=== PATIENT | male | born 2000 | race Caucasian/White ===

== ENCOUNTER 2024-11-11 18:32 | Emergency (ER) | payer OTHER, SELFPAY ==
[2024-11-11 18:43] VITALS: PULSE 106
[2024-11-11 18:44] VITALS: BP 135/75; PULSE 73; O2SAT 100
[2024-11-11 18:47] VITALS: BP 135/75; PULSE 66; RESP 16; TEMP 36.8; O2SAT 98
[2024-11-11 19:00] VITALS: BP 120/66; PULSE 68; O2SAT 100
[2024-11-11] MEDS: ONDANSETRON 4 MG ODT SL (19:06)
[2024-11-11] MEDS: IBUPROFEN 400 MG TABLET PO (19:06)
[2024-11-11] MEDS: ACETAMINOPHEN 325 MG TABLET PO (19:06)
[2024-11-11 19:30] VITALS: BP 124/68; PULSE 65; O2SAT 100
--- NOTE | 2024-11-11 19:47 | ED.HA ---
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 He has never had headaches, has never actually been sick has not taken ibuprofen or Tylenol and does not have any at home concerned that the headache was so severe he did not feel safe driving. It was associated with nausea, he did have a single episode of emesis that did not improve the head pain. He has no history or family history of migraine no trauma. Not currently complaining of fevers or myalgias but wondering if his throat is beginning to get slightly scratchy. Related Data Allergies Allergy/AdvReac Type Severity Reaction Status Date / Time No Known Drug Allergies Allergy Verified 11/11/24 18:52 Review of Systems Review of Systems Narrative: Pertinent positive and negative findings as per HPI Exam Initial Vital Signs Initial Vital Signs: Vital Signs Temperature 98.3 F 11/11/24 18:47 Pulse Rate 66 11/11/24 18:47 Respiratory Rate 16 11/11/24 18:47 Blood Pressure 135/75 11/11/24 18:47 Pulse Oximetry 98 11/11/24 18:47 Oxygen Delivery Method Room Air 11/11/24 18:47 General: Healthy appearing, in no acute distress. Able to give a complete and coherent history. Well-nourished well-developed HEENT: Moist mucous membranes, normal sclera with reactive pupils, no nuchal rigidity Neck: No cervical adenopathy Respiratory: Lungs are clear to auscultation, no wheezing no rales no rhonchi. Full and symmetrical air movement Cardiac: Regular rate and rhythm no murmurs Abdomen: Soft, nontender, no rebound or guarding, no flank pain Skin: Warm and dry, no rashes Neurologic: Grossly neurologically intact with no obvious asymmetries or abnormalities Extremities: No trauma, well perfused Psych: Cooperative, appropriate insight and affect Course Orders Ordered: Discontinued Medications Acetaminophen (Acetaminophen 325 Mg Tablet) 325 mg PO NOW ONE Stop: 11/11/24 18:55 Last Admin: 11/11/24 19:06 Dose: 325 mg Documented By: DIMITRI Ibuprofen (Ibuprofen 400 Mg Tablet) 400 mg PO NOW ONE Stop: 11/11/24 18:55 Last Admin: 11/11/24 19:06 Dose: 400 mg Documented By: DIMITRI Ondansetron HCl (Ondansetron 4 Mg Odt) 4 mg SL NOW ONE Stop: 11/11/24 18:55 Last Admin: 11/11/24 19:06 Dose: 4 mg Documented By: DIMITRI Vital Signs Vital signs: Vital Signs - 8 hr 11/11/24 18:47 Temperature 98.3 F Pulse Rate 66 Respiratory Rate 16 Blood Pressure 135/75 Pulse Oximetry 98 Oxygen Delivery Method Room Air MDM - Headache MDM Narrative Medical decision making narrative: 24-year-old young man presents with left-sided headache for the last 4 hours associated with some nausea, no trauma. No obvious fevers, cough, runny nose but does note that his throat is starting to get slightly scratchy. He did not have ibuprofen or Tylenol at home and states that he never gets headaches, never gets sick and does not take medications. Viral syndrome, tension headache, migraine headache, meningitis, with 4 hours of symptoms and no previous history intracranial pathology or tumor is far less likely With shared decision-making we opted to start with simple ibuprofen, Tylenol and Zofran and re-evaluate He is feeling significantly better after oral medications. We discussed use of ibuprofen and Tylenol home and I suggested he stop by the store on the way home. He is given a prepack of Zofran to use if needed. We talked about possibility of migraine, tension headaches and the higher probability that this likely is a viral syndrome that is starting. As treatment and recommendations would not change with testing for any viral etiology, testing was not done. Encouraged to return if symptoms do not improve. Discharge Plan Departure Patient Disposition: Home Clinical Impression: Headache Instructions: DI for Headache Activity Restrictions/Additional Instructions: Thank you for coming in today Your history and physical were not concerning for life-threatening type headaches including bleeding or life-threatening infections. It may be that this was initial migraine, attention headache but it could also be related to a developing virus such as COVID, influenza or rhino virus. Using 400 mg of ibuprofen (2 [id number] pills) and 1 Tylenol every 6 hours can be very helpful in controlling pain. If your symptoms persist over the next couple of days with increasing cough, runny nose, sore throat and muscle aches than this clearly is a virus and supportive care (which means ibuprofen, Tylenol plenty of fluids and rest) are all appropriate treatment. If you find that you are getting worse or develop any new symptoms, please feel free to return to the emergency department for further evaluation. Stand Alone Forms: Patient Portal/API, Work Release Note
[2024-11-11] MEDS: ONDANSETRON 4 MG ODT PREPACK 1 BOTTLE MISC (19:57)
== END 2024-11-11 19:56 | disposition home or self-care (01) ==
PROVIDERS: Emergency Provider Emergency Medicine
DX: R51.9 Headache, unspecified (principal)
CPT/HCPCS: 99283